=== PATIENT | male | born 1995 | race Caucasian/White ===

== ENCOUNTER 2021-08-25 11:29 | Emergency (ER) | payer BC, OTHER ==
[2021-08-25] MEDS ORDERED: Ketorolac 30 MG/ML SDV IM ONE (11:47)
[2021-08-25 11:48] VITALS: BP 129/47; PULSE 69
[2021-08-25] MEDS ORDERED: Methocarbamol 500 MG Tab PO ONE (11:48)
--- NOTE | 2021-08-25 12:15 | CR ---
[id number] RAD/RAD Lumbar Spine 2-3V EXAM: AP AND LATERAL LUMBAR SPINE. INDICATION: Back pain COMPARISON: No previous similar exam is available for comparison. FINDINGS: There is minimal loss of disc space at L5-S1 with marginal osteophyte There is no fracture or subluxation The pedicles are intact IMPRESSION: EARLY DEGENERATIVE CHANGES LUMBOSACRAL JUNCTION Ciro Tena MD 08/25/21 [id number] Thank you for allowing us to participate in the care of your patient.
--- NOTE | 2021-08-25 12:38 | EDM.PDOC ---
ED HPI GENERAL MEDICAL PROBLEM - General Chief Complaint: Back Pain or Injury Stated Complaint: BACK PAIN Time Seen by Provider: 08/25/21 11:30 Source of Information: Reports: Patient History Limitations: Reports: No Limitations - History of Present Illness INITIAL COMMENTS - FREE TEXT/NARRATIVE: 25-year-old male presents to the emergency room with acute onset of low back pain over the last 24 hours. He reports pain is rating across the lower back above the belt line bilaterally. He is not having any radicular symptoms no saddle paresthesias. No loss of bowel or bladder control. No numbness or tingling in his legs. He denies any specific injury. He works at [employer] at the [employer]. He did try some ibuprofen. Has not done any heat or cold packs. He is not experiencing any abdominal or colicky type pain. No radiation into the groin. No hematuria or dysuria. Onset: Gradual Onset Date: 08/24/21 Duration: Hour(s):, Constant Location: Reports: Back. Denies: Radiates to Quality: Reports: Ache Severity: Moderate Improves with: Reports: Rest Worsens with: Reports: Movement Context: Reports: Activity Associated Symptoms: Reports: No Other Symptoms Treatments [employer]: Reports: NSAIDS Middle Back Pain Score (Numeric/FACES): 7 - Related Data Allergies Allergy/AdvReac Type Severity Reaction Status Date / Time Penicillins Allergy Rash Verified 08/25/21 11:48 Home Meds: Home Meds . [No Known Home Meds] 08/25/21 [History] Social & Family History - Caffeine Use Caffeine Use: Reports: Soda ED ROS GENERAL - Review of Systems Review Of Systems: See Below Constitutional: Reports: No Symptoms HEENT: Reports: No Symptoms Respiratory: Reports: No Symptoms Cardiovascular: Reports: No Symptoms Endocrine: Reports: No Symptoms GI/Abdominal: Reports: No Symptoms : Reports: No Symptoms Musculoskeletal: Reports: Back Pain, Muscle Pain, Muscle Stiffness. Denies: Leg Pain Skin: Reports: No Symptoms Neurological: Reports: No Symptoms Psychiatric: Reports: No Symptoms Hematologic/Lymphatic: Reports: No Symptoms Immunologic: Reports: No Symptoms ED EXAM,LOWER BACK PAIN/INJURY - Physical Exam Exam: See Below Exam Limited By: No Limitations General Appearance: Alert, WD/WN, No Apparent Distress Eye Exam: Bilateral Eye: EOMI Ears: Hearing Grossly Normal Throat/Mouth: Normal Voice Head: Atraumatic, Normocephalic Neck: Normal Inspection Respiratory/Chest: No Respiratory Distress GI/Abdominal: Non-Tender Back Exam: Normal Inspection, Decreased Range of Motion, Muscle Spasm, Paraspinal Tenderness Extremities: Normal Inspection, Normal Range of Motion, Non-Tender, No Pedal Edema, Normal Capillary Refill. No: Leg Pain Neurological: Alert, Normal Mood/Affect, Normal Dorsiflexion, CN II-XII Intact, Normal Plantar Flexion, Normal Gait, No Motor/Sensory Deficits, Oriented x 3. No: Straight Leg Raise (L), Straight Leg Raise (R), Saddle Anesthesia, Difficulty Walking Psychiatric: Normal Affect, Normal Mood Skin Exam: Warm, Dry, Intact, Normal Color, No Rash Lymphatic: No Adenopathy Course - Vital Signs Last Recorded V/S: Last Vital Signs Temp 97.8 F 08/25/21 11:44 Pulse 69 08/25/21 11:44 Resp 18 08/25/21 11:44 BP 129/47 L 08/25/21 11:44 Pulse Ox 98 08/25/21 11:44 - Orders/Labs/Meds Meds: Medications Discontinued Medications Generic Name Dose Route Start Last Admin Trade Name Freq PRN Reason Stop Dose Admin Ketorolac Tromethamine 30 mg 08/25/21 11:47 08/25/21 11:50 Ketorolac 30 Mg/Ml Sdv IM 08/25/21 11:48 30 mg ONETIME ONE Administration Methocarbamol 1,000 mg 08/25/21 11:48 08/25/21 11:50 Methocarbamol 500 Mg Tab PO 08/25/21 11:49 1,000 mg ONETIME ONE Administration - Radiology Interpretation Free Text/Narrative:: X-ray AP lateral lumbar spine Findings: There is minimal loss of disc space at L5-S1 with marginal osteophyte. There is no fracture or subluxation. Pedicles are intact. Impression: Early degenerative changes lumbar sacral junction - Re-Assessments/Exams Free Text/Narrative Re-Assessment/Exam: 08/25/21 12:38 Patient was given IM Toradol and Robaxin. Patient at time of discharge reported improvement with his mobility less pain and discomfort in his low back. He is not experiencing any radicular symptoms or saddle paresthesias. I have mention the onset of these needs to be further evaluated in the future. I also mentioned that there is a fair amount of stool in his radiograph. He denies significant constipation no issues no abdominal pain. He may benefit from some milk of magnesia or stool softeners if constipation becomes an issue for him. Departure - Departure Time of Disposition: 12:38 Disposition: Home, Self-Care 01 Condition: Good Clinical Impression: Acute low back pain without sciatica Qualifiers: Back pain laterality: bilateral Qualified Code(s): M54.50 - Low back pain, unspecified - Discharge Information Instructions: Acute Back Pain, Adult, Back Exercises, [id number] Referrals: PCP,None [Primary Care Provider] - Forms: ED Department Discharge Care Plan Goals: 1. Ibuprofen 800 mg 3 times daily with food for 10 days. Stop if this causes any stomach upset. 2. Recommend taking a Pepcid daily while taking ibuprofen. 3. Robaxin 750 mg 3 times daily for muscle spasms as needed 4. Alternating heat and ice for your low back. 5. Rest avoid heavy lifting. 6. Recommend starting back strengthening, stretching exercises information will be provided. 7. If any onset of radicular symptoms which were discussed with you you will need to follow-up with your primary care for reevaluation M possible MRI. Your back pain is muscular in origin and should improve with conservative treatment. Sepsis Event Note (ED) - Evaluation Sepsis Screening Result: No Definite Risk - Focused Exam Vital Signs: Vital Signs Temp Pulse Resp BP Pulse Ox 08/25/21 11:44 97.8 F 69 18 129/47 L 98 - Assessment/Plan Assessment:: Acute low back pain without sciatica Plan: 1. Ibuprofen 800 mg 3 times daily with food for 10 days. Stop if this causes any stomach upset. 2. Recommend taking a Pepcid daily while taking ibuprofen. 3. Robaxin 750 mg 3 times daily for muscle spasms as needed 4. Alternating heat and ice for your low back. 5. Rest avoid heavy lifting. 6. Recommend starting back strengthening, stretching exercises information will be provided. 7. If any onset of radicular symptoms which were discussed with you you will need to follow-up with your primary care for reevaluation M possible MRI. Your back pain is muscular in origin and should improve with conservative treatment.
== END 2021-08-25 12:35 | disposition home or self-care (01) ==
LOC: KA.ED 11:29
DX: M54.50 Low back pain, unspecified (principal); Z88.0 Allergy status to penicillin
CPT/HCPCS: 72100; 96372; 99283; A9270; J1885